=== PATIENT | female | born 2000 | race Caucasian/White ===

== ENCOUNTER 2020-06-29 06:57 | Emergency (ER) | payer BC, OTHER ==
[~2020-06-29] VITALS: Ht 170.2 cm; Wt 131.8 kg
[2020-06-29] MEDS ORDERED: ONDANSETRON ODT 8 MG PO ONE (07:30)
[2020-06-29] MEDS ORDERED: ONDANSETRON ODT 4 MG ONE (07:47)
--- NOTE | 2020-06-29 07:51 | NUR ---
First contact with pt, assume care at this time. PT PRESENTS WITH COMPLAINTS NAUSEA, SORE THROAT, COUGH FOR SEVERAL DAYS. Pt in bed calm, NAD. Went over plan of care, agrees to plan.
--- NOTE | 2020-06-29 07:55 | NUR ---
lab in room
[2020-06-29 08:37] LABS: CHLORIDE 111 mmol/L (98-107)
[2020-06-29 08:40] LABS: BASOPHILS # (AUTO) 0.03 x10^3/uL (0-0.3); BASOPHILS % (AUTO) 0 % (0-1); EOSINOPHILS % (AUTO) 2 % (1-7); LYMPHOCYTES # (AUTO) 2.41 x10^3/uL (1-6.1); LYMPHOCYTES % (AUTO) 25 % (22-44); MD NO; MEAN CORPUSCULAR HEMOGLOBIN 32.2 pg (27.0-34.8); MEAN CORPUSCULAR HGB CONC 33.3 g/dL (32.4-35.8); MEAN CORPUSCULAR VOLUME 96.8 fL (80-100); MEAN PLATELET VOLUME 8.2 fL (7.4-10.4); MONOCYTES # (AUTO) 0.52 x10^3/uL (0-1.4); MONOCYTES % (AUTO) 5 % (2-9); NEUTROPHILS # (AUTO) 6.35 x10^3/uL (1.8-8.0); NEUTROPHILS % (AUTO) 67 % (42-75); PLATELET COUNT 306 x10^3/uL (130-400); RED BLOOD COUNT 4.66 x10^6/uL (3.82-5.3); RED CELL DISTRIBUTION WIDTH 13.3 % (9.6-15.2)
[2020-06-29 08:44] LABS: ANION GAP 7 mmol/L (5-15); CALCIUM 9.6 mg/dL (8.5-10.1); CREATININE 0.89 mg/dL (0.55-1.02)
[2020-06-29 09:19] VITALS: BP 124/74
== END 2020-06-29 09:21 | disposition home or self-care (01) ==
LOC: ED 07:27
DX: B34.9 Viral infection, unspecified (principal); Z20.828 Contact with and (suspected) exposure to other viral communicable diseases; R11.2 Nausea with vomiting, unspecified; E66.01 Morbid (severe) obesity due to excess calories
CPT/HCPCS: 36415; 71045; 80048; 84703; 85025; 87635; 99284; Q0162